=== PATIENT | female | born 1970 | race Hispanic/Latino ===

== ENCOUNTER 2023-10-25 06:12 | Day surgery (SDC) | payer MEDICAID ==
[~2023-10-25] VITALS: Ht 154.9 cm; Wt 111.1 kg
[2023-10-25] VITALS (11 sets, daily range): BP systolic 15–174; BP diastolic 72–96; PULSE 61–77; RESP 16–20
[2023-10-25] MEDS: 0.9%NACL 1000ML 1,000 ML IV ONE (07:58)
[2023-10-25] MEDS ORDERED: ATOR10TA69 PO (08:04)
[2023-10-25] MEDS ORDERED: CALC-866 PO (08:04)
[2023-10-25] MEDS ORDERED: LOSA100T59 PO (08:04)
[2023-10-25] MEDS ORDERED: HYDR12.54 PO (08:04)
[2023-10-25] MEDS ORDERED: CALC-960 PO (08:04)
[2023-10-25] MEDS ORDERED: MULT-1367 PO (08:04)
[2023-10-25] MEDS ORDERED: OMEG-61 PO (08:04)
[2023-10-25] MEDS ORDERED: PROPOFOL 10 MG/ML 20ML VIAL IV ONE (08:11)
== END 2023-10-25 09:35 | disposition home or self-care (01) ==
LOC: DAH 06:12
PROVIDERS: ATTEND Surgery
DX: K30 Functional dyspepsia (principal); K20.90 Esophagitis, unspecified without bleeding; K22.89 Other specified disease of esophagus; I10 Essential (primary) hypertension; E78.2 Mixed hyperlipidemia; E66.01 Morbid (severe) obesity due to excess calories; Z98.84 Bariatric surgery status; Z90.49 Acquired absence of other specified parts of digestive tract; Z68.43 Body mass index [BMI] 50.0-59.9, adult; Z98.0 Intestinal bypass and anastomosis status; Z79.899 Other long term (current) drug therapy
CPT/HCPCS: 81025; 43239; J7030; J3490; A4620; A4215; A4223; A4222; A4221; A4663; A4606; J2704